=== PATIENT | female | born 1955 | race Two or more races ===

== ENCOUNTER 2019-11-28 14:54 | Outpatient (CLI) | payer OTHER | END 2019-11-28 15:44 | disposition home or self-care (01) | LOC: NUCLEAR 14:54 | DX: I11.9 Hypertensive heart disease without heart failure (principal); I70.0 Atherosclerosis of aorta ==

== ENCOUNTER 2020-07-16 11:10 | Emergency (ER) | payer OTHER ==
[~2020-07-16] VITALS: Ht 162.6 cm; Wt 98.0 kg
[2020-07-16] MEDS ORDERED: APRODINE TABLE1 EACH (11:21)
[2020-07-16] MEDS ORDERED: SYNTHROID112 MCG (11:21)
[2020-07-16] MEDS ORDERED: KETO10TA2 PO (13:56)
[2020-07-16] MEDS ORDERED: NORFLEX100MG PO (13:56)
== END 2020-07-16 14:02 | disposition home or self-care (01) ==
LOC: ER 11:10 → EDBD 11:23 → ER 14:02
DX: M25.561 Pain in right knee (principal)

== ENCOUNTER 2020-07-21 09:18 | Outpatient (CLI) | payer OTHER ==
[~2020-07-21 09:18] MED LIST: APRODINE TABLE1 EACH; KETO10TA2 PO; NORFLEX100MG PO; SYNTHROID112 MCG
== END 2020-07-21 09:26 | disposition home or self-care (01) ==
LOC: EDBD 09:18 → MRI 09:18
PROVIDERS: ATTEND General Practice
DX: M71.21 Synovial cyst of popliteal space [Baker], right knee (principal); M25.561 Pain in right knee
CPT/HCPCS: 73721

== ENCOUNTER → 2021-05-28 08:00 | Outpatient (CLI) | payer OTHER ==
[~2021-05-28 08:00] MED LIST changes: +AVAPRO150 MG; +CRESTOR20 MG
== END | disposition home or self-care (01) ==
LOC: LAB 08:00 → EDSTATUS 06-04 07:39 → SURH 06-04 10:54
PROVIDERS: ATTEND Obstetrics & Gynecology Gynecologic Oncology
DX: Z03.818 Encounter for observation for suspected exposure to other biological agents ruled out (principal)

== ENCOUNTER 2021-08-02 07:19 | Emergency (ER) | payer OTHER ==
[~2021-08-02] VITALS: Ht 160 cm; Wt 102.1 kg
== END 2021-08-02 10:46 | disposition home or self-care (01) ==
LOC: ER 07:19
DX: S42.255A Nondisplaced fracture of greater tuberosity of left humerus, initial encounter for closed fracture (principal); S00.83XA Contusion of other part of head, initial encounter; W06.XXXA Fall from bed, initial encounter; Y93.89 Activity, other specified; Y92.092 Bedroom in other non-institutional residence as the place of occurrence of the external cause; Y99.8 Other external cause status

== ENCOUNTER 2021-08-04 15:22 | Emergency (ER) | payer OTHER ==
[~2021-08-04] VITALS: Ht 160 cm; Wt 102.1 kg
[2021-08-04] MEDS ORDERED: KETO10TA2 PO (18:08)
[2021-08-04] MEDS ORDERED: NORFLEX100MG PO (18:08)
== END 2021-08-04 18:11 | disposition home or self-care (01) ==
LOC: ER 15:22
DX: M25.512 Pain in left shoulder (principal); S42.225D 2-part nondisplaced fracture of surgical neck of left humerus, subsequent encounter for fracture with routine healing; W06.XXXD Fall from bed, subsequent encounter

== ENCOUNTER 2022-03-10 07:15 | Inpatient (IN) | payer OTHER ==
[~2022-03-10] VITALS: Ht 160 cm; Wt 100.2 kg
[~2022-03-10 07:15] MED LIST changes: -AVAPRO150 MG; +AVAPRO150 MG PO
[2022-03-10] MEDS ORDERED: NORVASC5 MG PO (08:26)
[2022-03-10] MEDS ORDERED: GABAPENTIN400 MG PO (08:27)
== END 2022-03-12 10:58 | disposition home or self-care (01) | DRG 735 ==
LOC: SURH 03-11 07:00 → O/R 03-11 08:46 → OB/GYN 03-11 15:01
PROVIDERS: ADMIT Obstetrics & Gynecology Gynecologic Oncology; ATTEND Obstetrics & Gynecology Gynecologic Oncology
PROC: 0UT94ZZ Resection of Uterus, Percutaneous Endoscopic Approach (ICD-10-PCS; 2022-03-11)
PROC: 0UT74ZZ Resection of Bilateral Fallopian Tubes, Percutaneous Endoscopic Approach (ICD-10-PCS; 2022-03-11)
PROC: 0UT24ZZ Resection of Bilateral Ovaries, Percutaneous Endoscopic Approach (ICD-10-PCS; 2022-03-11)
PROC: 07TD4ZZ Resection of Aortic Lymphatic, Percutaneous Endoscopic Approach (ICD-10-PCS; principal; 2022-03-11 07:00)
DX: D25.1 Intramural leiomyoma of uterus (principal); D27.1 Benign neoplasm of left ovary; N72 Inflammatory disease of cervix uteri; Z20.822 Contact with and (suspected) exposure to COVID-19

== ENCOUNTER 2022-09-16 07:07 | Outpatient (CLI) | payer OTHER ==
[~2022-09-16 07:07] MED LIST changes: +GABAPENTIN400 MG PO; +NORVASC5 MG PO
== END 2022-09-16 07:08 | disposition home or self-care (01) ==
LOC: NUCLEAR 07:07
PROVIDERS: ATTEND Specialist
DX: D35.1 Benign neoplasm of parathyroid gland (principal); E21.5 Disorder of parathyroid gland, unspecified; C75.0 Malignant neoplasm of parathyroid gland
CPT/HCPCS: 78072; A9500

== ENCOUNTER 2023-12-02 20:57 | Emergency (ER) | payer OTHER ==
[~2023-12-02] VITALS: Ht 162.6 cm; Wt 94.3 kg
[2023-12-02] MEDS ORDERED: IPRATROPIUM BROMIDE 0.5 MG/2.5 ML AMPUL.NEB IH SCH (22:45)
[2023-12-02] MEDS ORDERED: METHYLPREDNISOLONE SOD SUCC 125 MG VIAL IV ONE (22:45)
[2023-12-02] MEDS ORDERED: CEFTRIAXONE SODIUM 1,000 MG VIAL IM ONE (22:45)
[2023-12-02] MEDS ORDERED: ALBUTEROL SULFATE 3 ML/2.5 MG AMPUL.NEB IH SCH (22:45)
== END 2023-12-03 01:49 | disposition home or self-care (01) ==
LOC: ER 20:57
DX: H81.10 Benign paroxysmal vertigo, unspecified ear (principal); J00 Acute nasopharyngitis [common cold]; I10 Essential (primary) hypertension; Z20.822 Contact with and (suspected) exposure to COVID-19
CPT/HCPCS: 70450; 71046; 93005; 94640; 96365; 96372; 99284; J0696; J2930